=== PATIENT | male | born 1980 | race Caucasian/White ===

== ENCOUNTER 2017-07-31 22:34 | Emergency (ER) | payer OTHER ==
[2017-07-31] MEDS: IV NORMAL SALINE 1000ML BAG 1,000 ML IV (22:57)
[2017-07-31 23:01] LABS: AGAP ISTAT 15 mmol/L (6-14); BUN ISTAT 17 mg/dL (8-26); CHLORIDE ISTAT 105 mmol/L (98-110); CREATININE ISTAT 1.1 mg/dL (0.5-1.4); GLUCOSE ISTAT 135 mg/dL (70-99); HEMATOCRIT ISTAT 49 % (37-52); HEMOGLOBIN ISTAT 16.7 g/dL (14-18); ION CA ISTAT 1.15 mmol/L (1.13-1.32); POTASSIUM ISTAT 4.1 mmol/L (3.5-5.0); SODIUM ISTAT 138 mmol/L (135-145); TOT CO2 ISTAT 24 mmol/L (23-32)
[2017-07-31] MEDS: ONDANSETRON PF 4 MG/2 ML VIAL. IV (23:48)
== END 2017-08-01 00:18 | disposition home or self-care (01) ==
LOC: ER 08-01 00:18
DX: K52.9 Noninfective gastroenteritis and colitis, unspecified (principal); B34.9 Viral infection, unspecified
CPT/HCPCS: 80047; 96361; 96374; 99284-25; J2405; J7030